=== PATIENT | male | born 1990 | race Caucasian/White ===

== ENCOUNTER 2018-12-06 17:41 | Emergency (ER) | payer SELFPAY ==
--- NOTE | 2018-12-06 17:44 | DI.RAD.S_ITS ---
PROCEDURE: XR LUMBAR SPINE 2-3V INDICATIONS: Spinal tenderness with fall from 20ft. TECHNIQUE: 3 views of the lumbar spine were acquired. COMPARISON: [facility], CR, XR SACRUM COCCYX MIN 2V, 12/06/2018, 17:51. FINDINGS: Bones: 5 [id number] vertebrae are present. There is minimal anterolisthesis at L1-L2, L2-L3, and L3-L4. The disc spaces appear preserved. There is minimal facet arthropathy in the lower lumbar spine. No vertebral body compression fractures or other displaced fracture identified. No suspicious bony lesions. Soft tissues: Overlying bowel gas pattern is normal. No suspicious soft tissue calcifications. IMPRESSION: 1. No evidence of compression fracture or other displaced fractures. If clinical concern persists, further evaluation may be obtained CT. 2. Minimal multilevel retrolisthesis. Dictated by: Omi Hathaway M.D. on 12/06/2018 at 18:09 Approved by: Omi Hathaway M.D. on 12/06/2018 at 18:10
--- NOTE | 2018-12-06 17:44 | DI.RAD.S_ITS ---
PROCEDURE: XR SACRUM COCCYX MIN 2V INDICATIONS: Bony tenderenss after 20ft fall landing on sacrum TECHNIQUE: 3 views of the sacrum and coccyx acquired. COMPARISON: [facility], CR, XR LUMBAR SPINE 2-3V, 12/06/2018, 17:51. FINDINGS: Bones: No displaced fractures or dislocations. No suspicious bony lesions. Soft tissues: Visualized bowel gas pattern is normal. No suspicious soft tissue densities. IMPRESSION: 1. No displaced fracture identified. If clinical concern persists, further evaluation may be obtained with CT. Dictated by: Omi Hathaway M.D. on 12/06/2018 at 18:08 Approved by: Omi Hathaway M.D. on 12/06/2018 at 18:09
[2018-12-06 17:47] VITALS: BP 128/81; PULSE 79; RESP 18; TEMP 37.1; O2SAT 99; BMI 28.3
--- NOTE | 2018-12-06 18:25 | ED_ITS ---
HPI - Back Pain/Injury <RAMIREZ Day - Last Filed: 12/06/18 21:27> General Chief Complaint: Trauma Stated Complaint: FELL FROM LADDER Time Seen by Provider: 12/06/18 17:42 Source: patient Mode of arrival: ambulatory Limitations: no limitations History of Present Illness HPI Narrative: 28-year-old healthy male presents emergency department after falling off a ladder about 20 ft about 4 days ago and landing on his coccyx. States that he has a constant 6/10 aching pain in his buttocks that is worse with movement better with rest. Patient denies hitting head head or other injuries. Patient denies any numbness, tingling, loss of bowel or bladder control, shortness of breath, chest pain, deformities, leg pain or weakness, fevers or chills. MD Complaint: back pain Onset (ago): hour(s) Related Data Previous Rx's Medication Instructions Recorded diazepam [Valium] 5 mg PO BID PRN #10 tab 12/06/18 Allergies Allergy/AdvReac Type Severity Reaction Status Date / Time No Known Drug Allergies Allergy Verified 12/06/18 17:47 Review of Systems <RAMIREZ Day - Last Filed: 12/06/18 21:27> Review of Systems REVIEW OF SYSTEMS: GENERAL: Denies fever or chills. HENT: No head trauma, hearing loss or sore throat. EYES: No loss of vision, double vision, eye pain, or irritation. CARDIOVASCULAR: No chest pain or syncope. RESPIRATORY: No shortness of breath or cough. GASTROINTESTINAL: No nausea, vomiting, diarrhea, or constipation. GENITOURINARY: No flank pain or dysuria. MUSCULOSKELETAL: Complains of coccyx pain, see HPI. INTEGUMENTARY: No rash, lesions, or pruritus. NEURO: No numbness, tingling, memory loss, or confusion. PSYCH: No behavior or mood changes. PFSH <RAMIREZ Day - Last Filed: 12/06/18 21:27> Medical History No significant medical problems (Acute) Social History Smoking Status: Current every day smoker Social History Smoking Status: Current every day smoker Exam <RAMIREZ Day - Last Filed: 12/06/18 21:27> Initial Vital Signs Initial Vital Signs: Vital Signs Temperature 98.8 F 12/06/18 17:47 Pulse Rate 79 12/06/18 17:47 Respiratory Rate 18 12/06/18 17:47 Blood Pressure 128/81 12/06/18 17:47 Pulse Oximetry 99 12/06/18 17:47 PHYSICAL EXAMINATION: GENERAL: Well groomed, alert, and cooperative Answers questions promptly and appropriately. Vital signs noted. HENT: Normocephalic, atraumatic. EYES: PERRLA, conjunctiva pink, sclera white, no periorbital swelling. NECK: Full range of motion. No tenderness to palpation. CHEST: Normal to inspection and without deformities. CARDIOVASCULAR: S1 and S2 sounds normal. Regular rate and rhythm, no murmurs, clicks, or bruits. No pedal edema. RESPIRATORY: Normal respiratory rate, trachea midline, airway patent. No stridor, nasal flaring or accessory muscle use. Lungs are clear in all buchanan without wheeze, rhonchi, or crackles. GASTROINTESTINAL: Bowel sounds normoactive. Abdomen is soft and non-tender. No organomegaly. MUSCULOSKELETAL: Normal gait and coordination. Equal tone and mass bilaterally. Coccyx tenderness with palpation, lower lumbar tenderness with palpation. Tenderness around prior spinal muscles. No bruising noted. EXTREMITIES: CMS intact. Full range of motion and 5/5 strength to upper and lower extremities SKIN: Warm, dry, soft, appropriate color for ethnicity. No lesions, rashes, or wounds. NEURO: Alert and Oriented X 3. Good coordination. No ataxia, or sensory deficits to light touch on any extremities, or cognitive issues. Claim Benefit Specialist strength is slightly decreased on the right hand due to history of thumb injury, upper limb strength remains equal bilaterally at 5/5. PSYCH: Appropriate affect and mood. <Miguel Angel Montilla DO - Last Filed: 12/12/18 00:46> Initial Vital Signs Initial Vital Signs: Vital Signs Temperature 98.8 F 12/06/18 17:47 Pulse Rate 79 12/06/18 17:47 Respiratory Rate 18 12/06/18 17:47 Blood Pressure 128/81 12/06/18 17:47 Pulse Oximetry 99 12/06/18 17:47 Scores <RAMIREZ Day - Last Filed: 12/06/18 21:27> Nexus Score for C-Spine Focal Neurologic deficit present: No Midline spinal tenderness present: No Altered level of conciousness present: No Intoxication present: No Distracting Injury Present: No Nexus Criteria for C-spine: 0 Course <RAMIREZ Day - Last Filed: 12/06/18 21:27> Course Narrative: Spoke with patient about negative x-rays, advised patient that obtain a CT would tell us more as he is experiencing significant pain. However patient decided that he would like to leave as this is the only day that he gets to see his daughter, and declined further imaging. Strict return precautions were given patient understood that the fracture may be missed if CT was not obtained. Orders Ordered: ED Orders 12/06/18 17:44 XR lumbar spine 2-3V Stat XR sacrum coccyx min 2V Stat Consultations Consultation #1: Patient staffed with Dr. Montilla. Vital Signs - 8 hr 12/06/18 17:47 Temperature 98.8 F Pulse Rate 79 Respiratory Rate 18 Blood Pressure 128/81 Pulse Oximetry 99 <Miguel Angel Montilla DO - Last Filed: 12/12/18 00:46> Orders Ordered: ED Orders 12/06/18 17:44 XR lumbar spine 2-3V Stat XR sacrum coccyx min 2V Stat Vital Signs - 8 hr 12/06/18 17:47 Temperature 98.8 F Pulse Rate 79 Respiratory Rate 18 Blood Pressure 128/81 Pulse Oximetry 99 MDM - Back Pain/Injury <RAMIREZ Day - Last Filed: 12/06/18 21:27> Medical Records Attestation: I reviewed the patient's medical records. Lab Data Attestation: I reviewed the patient's lab results. Imaging Data Lumbar XR: Radiologist's impression: [address] [address] XRay Report Signed Patient: Aram Leyva [facility]#: [id number] : 1990Acct:[id number] Age/Sex: 28 / MDate of Service: 12/06/18 Loc: ED Accession Number: [id number] Procedure: XR lumbar spine 2-3V Ordering Provider: Liliana Holt PROCEDURE: XR LUMBAR SPINE 2-3V INDICATIONS: Spinal tenderness with fall from 20ft. TECHNIQUE: 3 views of the lumbar spine were acquired. COMPARISON: [facility], CR, XR SACRUM COCCYX MIN 2V, 12/06/2018, 17:51. FINDINGS: Bones: 5 [id number] vertebrae are present. There is minimal anterolisthesis at L1-L2, L2-L3, and L3-L4. The disc spaces appear preserved. There is minimal facet arthropathy in the lower lumbar spine. No vertebral body compression fractures or other displaced fracture identified. No suspicious bony lesions. Soft tissues: Overlying bowel gas pattern is normal. No suspicious soft tissue calcifications. IMPRESSION: 1. No evidence of compression fracture or other displaced fractures. If clinical concern persists, further evaluation may be obtained CT. 2. Minimal multilevel retrolisthesis. Dictated by: Omi Hathaway M.D. on 12/06/2018 at 18:09 Approved by: Omi Hathaway M.D. on 12/06/2018 at 18:10 Sacral/cocc XR: Radiologist's impression: [place] [address] XRay Report Signed Patient: Aram Leyva [facility]#: [id number] : 1990Acct:[id number] Age/Sex: 28 / MDate of Service: 12/06/18 Loc: ED Accession Number: [id number] Procedure: XR sacrum coccyx min 2V Ordering Provider: Liliana Holt PROCEDURE: XR SACRUM COCCYX MIN 2V INDICATIONS: Bony tenderenss after 20ft fall landing on sacrum TECHNIQUE: 3 views of the sacrum and coccyx acquired. COMPARISON: [facility], CR, XR LUMBAR SPINE 2-3V, 12/06/2018, 17:51. FINDINGS: Bones: No displaced fractures or dislocations. No suspicious bony lesions. Soft tissues: Visualized bowel gas pattern is normal. No suspicious soft tissue densities. IMPRESSION: 1. No displaced fracture identified. If clinical concern persists, further evaluation may be obtained with CT. Dictated by: Omi Hathaway M.D. on 12/06/2018 at 18:08 Approved by: Omi Hathaway M.D. on 12/06/2018 at 18:09 [facility] Narrative Medical decision making narrative: Low suspicion for fracture due to negative lumbar and sacral coccyx x-ray, however due to mechanism of fall recommended CT to further reduce suspicion as patient remains in pain 4 days after fall. However patient declined further testing. Low suspicion for abdominal injury is nontender, and denies any dysuria, change in bowel patterns, or vomiting since the fall 4 days ago. Low suspicion for head injuries patient reports not having had the patient is alert and oriented. Low suspicion for thoracic or cervical spine injury as there is no pain on palpation. Strict return precautions given and follow-up instructions discussed. Discharge Plan Departure Patient Disposition: Home Clinical Impression: Lumbar back pain Lumbar strain Qualifiers: Encounter type: initial encounter Qualified Code(s): S39.012A - Strain of muscle, fascia and tendon of lower back, initial encounter Discharge Date/Time: 12/06/18 18:42 Interventions: ED Discharge Assessment Last Done: 12/06/18 18:42 Instructions: DI for Low Back Pain Activity Restrictions/Additional Instructions: Thank you for entrusting me with your care today. As discussed, you're x-rays are negative for fracture. We discussed getting a CT as her fall was from a significant height, however you declined this at this time. If your symptoms continue and/or worsen please follow up with her primary care provider or return to the emergency department. I prescribed you Valium to help with tense muscles and pain., do not drive with this medication as it can make her drowsy. Return to the emergency department if you experience syncope, chest pain, shortness of breath, significant increase of pain, numbness or tingling in her limbs, loss of bowel or bladder control. Prescriptions: New diazepam [Valium] 5 mg tablet 5 mg PO BID PRN (Reason: Back pain and stiffness) Qty: 10 RF: 0 <Miguel Angel Montilla DO - Last Filed: 12/12/18 00:46> Cosgutierrez ED Attending Rick Attestation: I was immediately available in the department for consultation. Documentation has been reviewed. I agree with assessment and plan.
--- NOTE | 2018-12-06 18:39 | PC.NURSE ---
Patient fell off ladder 20ft on tuesday reports landing on his but. Reports pain with sitting, denies bowel or bladder loss. Denies numbness or tingling in lower extremities. Equal strength noted in legs. Ambulatory around department.
== END 2018-12-06 18:42 | disposition home or self-care (01) ==
PROVIDERS: Emergency Provider Nurse Practitioner
DX: S39.012A Strain of muscle, fascia and tendon of lower back, initial encounter (principal); W11.XXXA Fall on and from ladder, initial encounter
CPT/HCPCS: 72100; 72220; 99282; 99283

== ENCOUNTER 2019-01-28 15:15 | Emergency (ER) | payer SELFPAY ==
[2019-01-28 15:20] VITALS: BP 126/70; PULSE 69; RESP 15; TEMP 37.1; O2SAT 97; BMI 30.1
--- NOTE | 2019-01-28 15:26 | DI.RAD.S_ITS ---
PROCEDURE: XR FINGER LT MIN 2V INDICATIONS: laceration on L 4th finger TECHNIQUE: AP hand, 2 views of the ring (fourth) finger(s) acquired. COMPARISON: None. FINDINGS: Bones: No fractures or dislocations. No suspicious bony lesions. Soft tissues: No suspicious soft tissue calcifications. No unexpected radiopaque foreign bodies are evident. IMPRESSION: 1. No acute fractures. 2. No radiopaque foreign bodies. Dictated by: Adelso Pugh M.D. on 01/28/2019 at 14:41 Approved by: Adelso Pugh M.D. on 01/28/2019 at 14:42
[2019-01-28] MEDS: TET,DIPH,PERTUSS(ACELL),VAC/PF 0.5 ML SYRINGE IM (15:44)
--- NOTE | 2019-01-28 16:07 | ED.WOUNDLAC ---
HPI - Wound/Laceration <RAMIREZ Donovan - Last Filed: 01/28/19 21:44> General Chief Complaint: Wound/Laceration Stated Complaint: left hand palm injury/4th digit today Time Seen by Provider: 01/28/19 15:19 Source: patient and family Mode of arrival: ambulatory Limitations: no limitations History of Present Illness HPI narrative: This is a 28-year-old male, smoker, who present with his fiancee with chief complain of left 4th finger small avulsion in mid phalange, small laceration to distal phalange, small laceration to palm from a broken ceramic bowl when he was washing dishes. He states had washed his hand will well remove all the glass particles. He reports his last tetanus was between 3-8 years ago. He is right dominant hand. He reports he is able to move his fingers with intact sensation. Related Data Previous Rx's Medication Instructions Recorded diazepam [Valium] 5 mg PO BID PRN #10 tab 12/06/18 Allergies Allergy/AdvReac Type Severity Reaction Status Date / Time No Known Drug Allergies Allergy Verified 12/06/18 17:47 Review of Systems <RAMIREZ Donovan - Last Filed: 01/28/19 21:44> Review of Systems General: Denies fever, chills, fatigue, malaise, sweats. HEENT: Denies sinus pain, ear pain, sore throat, difficulty swallowing, dizziness. Respiratory: Denies dyspnea, cough, wheezing, hemoptysis, sputum. Cardiovascular: Denies chest pain, palpitations, orthopnea, edema. Gastrointestinal: Denies nausea, vomiting, abdominal pain, diarrhea, constipation, melena. : Denies dysuria, frequency, incontinence, hematuria, urinary retention. Musculoskeletal: Denies weakness, joint pain or bony pain. Skin: See HPI Neurologic: Denies weakness, headache, numbness, change in speech, confusion, seizures, incoordination. Psychiatric: No concerning psychosocial issues. 12-point review of systems is negative except for those stated above. PFSH <RAMIREZ Donovan - Last Filed: 01/28/19 21:44> Medical History No significant medical problems (Acute) Social History Smoking Status: Current every day smoker Social History Smoking Status: Current every day smoker Exam <RAMIREZ Donovan - Last Filed: 01/28/19 21:44> Narrative Exam Narrative: General appearance: well developed, well nourished, in no acute distress. Head: normocephalic, atraumatic, no scalp lesions, non-tender. Eye: pupil equal, round. EOMI. Nose: nares patent. Oral: mucosa moist. Neck/Thyroid: neck supple, full range of motion, no visible masses. Skin: 0.5cm linear laceration on L palm. Flap like small avulsion, <0.5cm, on L 4th middle finger. 0.5cm laceration on distal 4th L finger. No active bleeding and lacerations is superficial. Laceration and avulsion have mostly approximated at this time. No FB seen or felt during exploration. no suspicious rashes, lesions over other visible areas. Warm and dry. Heart: no clubbing, no cyanosis, no edema. Lungs: Breathing even and unlabored. No stridor. No accessory muscles used. Chest: normal shape and expansion. Abdomen: non-obese, non-distended. Neurologic: alert and oriented. 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 Psych: good eye contact, normal affect. Initial Vital Signs Initial Vital Signs: Vital Signs Temperature 98.7 F 01/28/19 15:20 Pulse Rate 69 01/28/19 15:20 Respiratory Rate 15 01/28/19 15:20 Blood Pressure 126/70 01/28/19 15:20 Pulse Oximetry 97 01/28/19 15:20 Extrem Left upper extremity: full ROM, normal capillary refill and hand Details: neuromotor exam normal, neurosensory exam normal, tenderness, normal ROM of fingers, no swelling, abrasion and laceration <Miguel Angel Montilla DO - Last Filed: 01/30/19 04:41> Initial Vital Signs Initial Vital Signs: Vital Signs Temperature 98.7 F 01/28/19 15:20 Pulse Rate 69 01/28/19 15:20 Respiratory Rate 15 01/28/19 15:20 Blood Pressure 126/70 01/28/19 15:20 Pulse Oximetry 97 01/28/19 15:20 Procedures <SALLY DonovanP - Last Filed: 01/28/19 21:44> Laceration Repair L 4th finger : Site: hand (4th finger middle and proximal) Side (If applicable): left Size (cm): 1 Description: flap Skin layer closed with: dermabond L palm: Site: hand (palm) Side (If applicable): left Size (cm): 0.5 Description: linear Skin layer closed with: dermabond Course <SALLY DonovanP - Last Filed: 01/28/19 21:44> Orders Ordered: Discontinued Medications Diphtheria/Tetanus/Acell Pertussis (Adacel) 0.5 ml IM .ONCE ONE Stop: 01/28/19 15:27 Last Admin: 01/28/19 15:44 Dose: 0.5 ml Lidocaine/Sodium Bicarbonate (Buffered Lidocaine 10 Ml Syr) 10 ml INJ NOW ONE Stop: 01/28/19 15:27 Vital Signs - 8 hr 01/28/19 15:20 Temperature 98.7 F Pulse Rate 69 Respiratory Rate 15 Blood Pressure 126/70 Pulse Oximetry 97 <Miguel Angel Montilla DO - Last Filed: 01/30/19 04:41> Orders Ordered: Discontinued Medications Diphtheria/Tetanus/Acell Pertussis (Adacel) 0.5 ml IM .ONCE ONE Stop: 01/28/19 15:27 Last Admin: 01/28/19 15:44 Dose: 0.5 ml Lidocaine/Sodium Bicarbonate (Buffered Lidocaine 10 Ml Syr) 10 ml INJ NOW ONE Stop: 01/28/19 15:27 Vital Signs - 8 hr 01/28/19 15:20 Temperature 98.7 F Pulse Rate 69 Respiratory Rate 15 Blood Pressure 126/70 Pulse Oximetry 97 MDM - Wound/Laceration <Tarun JacquesSALLY GarciaP - Last Filed: 01/28/19 21:44> Differential Diagnosis Differential diagnosis: Likely laceration and other (avulsion, foreign body in L finger/palm) Medical Records Attestation: I reviewed the patient's medical records. Imaging Data XR-L finger: Radiologist's impression: [address] [address] XRay Report Signed Patient: Aram Laura [facility]#: [id number] : 1990Acct:[id number] Age/Sex: 28 / MDate of Service: 01/28/19 Loc: ED Accession Number: [id number] Procedure: XR finger LT min 2V Ordering Provider: Tarun Malhotra PROCEDURE: XR FINGER LT MIN 2V INDICATIONS: laceration on L 4th finger TECHNIQUE: AP hand, 2 views of the ring (fourth) finger(s) acquired. COMPARISON: None. FINDINGS: Bones: No fractures or dislocations. No suspicious bony lesions. Soft tissues: No suspicious soft tissue calcifications. No unexpected radiopaque foreign bodies are evident. IMPRESSION: 1. No acute fractures. 2. No radiopaque foreign bodies. Dictated by: Adelso Pugh M.D. on 01/28/2019 at 14:41 Approved by: Adelso Pugh M.D. on 01/28/2019 at 14:42 MDM Narrative Medical decision making narrative: This is a 28-year-old male presents with small a avulsion to left 4th middle finger, laceration to distal left 4th finger, another laceration to left palm from a shattered ceramic bowl while he was washing dishes. He cleaned his wound well before arriving to ED to remove all the glass particles. Patient's neuro vascular exam was intact and range of motion was intact. X-ray on left finger was obtained without any acute findings such as fractures or radiopaque pack foreign bodies. The patient soak his finger into he Hibiclens and water. Tdap was updated today as patient's request. His 3 small wounds was repaired with pond and patient tolerated well. The wound was dressed by nursing staff. We discussed about post Dermabond care was discussed with patient and return precautions such as infection. The patient does not have PCP this time and [facility] Resource contact phone number has been provided. No further questions at this and the patient and fiancee agree with treatment plan. Discharge Plan Departure Patient Disposition: Home Clinical Impression: Laceration Discharge Date/Time: 01/28/19 17:02 Interventions: ED Discharge Assessment Last Done: 01/28/19 17:01 Instructions: DI for Laceration Repair With Dermabond Activity Restrictions/Additional Instructions: Please do not get your wound soaked in the water until suture removal. Keep your dressing intact for next 24 hrs. After then, you could remove your dressing, wash with soap and water. Pat dry with clean papertowel and dress it. Please avoid using oil based ointment, cream, lotion and etc since this may make dermabond lose and removed prematurely. Dermabond will come off in 5-7 days on its own. Do not peel this off or pick on it. You can change dressing as needed and daily. Please monitor for signs and symptoms for infection such as increasing redness, swelling, warmth, pain, fever, purulent discharge. If this occurs, please return to ED or follow up with your primary care physician since your wound may be gotten infected. Please follow up with your primary care provider in 2-3 days for recheck wound. This can be done by your primary provider, walk-in clinic or here in ED. Please keep your wound clean, dry and intact all times and try to avoid excessive flexing or putting pressure on affected hand. Prescriptions: No Action diazepam [Valium] 5 mg tablet 5 mg PO BID PRN (Reason: Back pain and stiffness) Qty: 10 RF: 0 Referrals: [facility] [Outside] <Miguel Angel Montilla DO - Last Filed: 01/30/19 04:41> R[facility] ED Attending Rick Attestation: I was immediately available in the department for consultation. Documentation has been reviewed. I agree with assessment and plan.
== END 2019-01-28 17:02 | disposition home or self-care (01) ==
PROVIDERS: Emergency Provider Nurse Practitioner Family
DX: S61.412A Laceration without foreign body of left hand, initial encounter (principal); S61.215A Laceration without foreign body of left ring finger without damage to nail, initial encounter; W26.8XXA Contact with other sharp object(s), not elsewhere classified, initial encounter; Z23 Encounter for immunization
CPT/HCPCS: 73140; 90472; 99283; 90715

== ENCOUNTER 2020-01-31 20:37 | Emergency (ER) | payer OTHER, SELFPAY ==
--- NOTE | 2020-01-31 20:38 | ED_ITS ---
HPI - URI/Sore Throat General Chief Complaint: Upper Respiratory Symptoms Stated Complaint: throat swelling Time Seen by Provider: 01/31/20 20:38 Source: patient Mode of arrival: Ambulatory Limitations: no limitations History of Present Illness HPI Narrative: 29M without medical history presents with the chief complaint of sore throat over the day. It hurts to swallow. He's had subjective fever and some trouble breathing but no definite cough. He's had no nausea, vomiting, or diarrhea. He denies exposure to obviously ill persons. He's had no rash. No chest pain and is otherwise well and free of complaint. Related Data Previous Rx's Medication Instructions Recorded diazepam [Valium] 5 mg PO BID PRN #10 tab 12/06/18 Allergies Allergy/AdvReac Type Severity Reaction Status Date / Time No Known Drug Allergies Allergy Verified 12/06/18 17:47 Review of Systems Constitutional Constitutional: Denies chills, Denies fatigue, Denies fever(s), Denies frequent falls, Denies lethargy and Denies weakness Eyes Eyes: Denies change in vision, Denies eye discharge, Denies irritation and Denies loss of vision ENT Ears, Nose, Mouth, and Throat: Denies change in voice, Denies dizziness, Denies neck pain, Reports sore throat and Denies throat swelling Cardiovascular Cardiovascular: Denies chest pain, Denies irregular heart rhythm, Denies lightheadedness, Denies palpitations, Denies dyspnea, Denies dyspnea on exertion and Denies orthopnea Respiratory Respiratory: Reports cough, Denies dyspnea, Denies dyspnea on exertion and Denies wheezing Gastrointestinal Gastrointestinal: Denies abdominal pain, Denies change in bowel habits, Denies diarrhea, Denies nausea and Denies vomiting Musculoskeletal Musculoskeletal: Denies neck pain and Denies numbness Integumentary/Breasts Skin/Breast: Denies pruritus, Denies erythema, Denies rash and Denies wounds Neurologic Neurologic: Denies behavioral changes, Denies confusion, Denies dizziness, Denies frequent falls, Denies loss of vision, Denies numbness and Denies weakness Psychiatric Psychiatric: Denies anxiety, Denies behavioral changes, Denies confusion, Denies depression, Denies homicidal ideation and Denies suicidal ideation Endocrine Endocrine: Denies fatigue, Denies flushing and Denies palpitations Hematologic/Lymphatic Hematologic/Lymphatic: Denies easy bruising Allergic/Immunologic Allergic/Immunologic: Denies urticaria, Denies throat swelling and Denies wheezing Patient History Medical History No significant medical problems (Acute) Social History Smoking Status: Current every day smoker Smoking Status: Current every day smoker Substance Use Type: does not use Exam Narrative Exam Narrative: GENERAL: [29] year old patient appears stated age. Well- nourished, well-developed patient, in mild distress. HEAD: Atraumatic. Normocephalic. EYES: Pupils equal round and reactive. Extraocular motions intact. No scleral icterus. No injection or drainage. ENT: Nose without bleeding, purulent drainage. Throat without erythema, tonsillar hypertrophy or exudate. Perhaps a small amount of posterior pharyngeal tripped Airway patent. NECK: Trachea midline. Non tender CARDIOVASCULAR: Regular rate and rhythm without murmurs, gallops, or rubs. RESPIRATORY: Clear to auscultation. Breath sounds equal bilaterally. No wheezes, rales, or rhonchi. GASTROINTESTINAL: Abdomen soft, non-tender, nondistended. EXTREMITIES: No edema or joint tenderness. BACK: Nontender without deformity or crepitance. No flank tenderness. NEURO: AOx3. SKIN: No rash or erythema of visible areas Initial Vital Signs Initial Vital Signs: Vital Signs Temperature 100.5 F H 01/31/20 20:45 Pulse Rate 89 01/31/20 20:45 Respiratory Rate 15 01/31/20 20:45 Blood Pressure 131/65 01/31/20 20:45 Pulse Oximetry 99 01/31/20 20:45 Course Orders Ordered: ED Orders 01/31/20 20:50 Throat Culture Stat 01/31/20 21:18 XR chest 1V Stat Discontinued Medications Dexamethasone (Decadron) 10 mg PO NOW ONE Stop: 01/31/20 20:44 Last Admin: 01/31/20 20:49 Dose: 10 mg Documented by: CHRISTOPHE Ketorolac Tromethamine (Toradol) 60 mg IM NOW ONE Stop: 01/31/20 20:42 Last Admin: 01/31/20 20:49 Dose: 60 mg Documented by: CHRISTOPHE Vital Signs Vital signs: Vital Signs - 8 hr 01/31/20 20:45 01/31/20 22:19 Temperature 100.5 F H 99.5 F Pulse Rate 89 84 Respiratory Rate 15 16 Blood Pressure 131/65 128/66 Pulse Oximetry 99 98 MDM - URI/Sore Throat Lab Data Labs: Point of Care Testing Rapid Strep A Negative Discharge Plan Departure Patient Disposition: Home Clinical Impression: Upper respiratory virus Discharge Date/Time: 01/31/20 22:32 Instructions: Coronavirus Disease 2019 Activity Restrictions/Additional Instructions: *You have been diagnosed with [ viral upper respiratory infection, which based on your symptoms, labs and imaging is suspicious for coronavirus] *What to do: * per recommendations from the CDC and the [facility] Department of Health * stay home except to get medical care. Restrict activities outside your home, except for getting medical care. Do not go to work, school, or public areas. Avoid using public transportation, ride sharing, or taxis. * separate yourself from other people in your home. * call ahead before visiting your doctor * Wear a facemask * Cover your coughs and sneezes * Clean your hands often * Avoid sharing household items * Clean all high-touch services every day * Monitor your symptoms and seek prompt medical attention if your illness is worsening, particularly with difficulty in breathing. Discussed continuing home isolation * for individuals with symptoms who are confirmed or suspected cases of COVID-19 and are directed to care for themselves at home, discontinue home isolation under the following conditions: 1. At least 72 hours have passed since recovery, defined as resolution of fever without the use of fever reducing medications, and improvement in respiratory symptoms (cough, shortness of breath) AND, 2. At least 7 days have passed since symptoms 1st appeared Individuals with laboratory confirmed COVID-19 who have not had any symptoms may discontinue home isolation when at least 7 days have passed since the date of their 1st COVID-19 diagnostic test and have had no subsequent illness Prescriptions: No Action diazepam [Valium] 5 mg tablet 5 mg PO BID PRN (Reason: Back pain and stiffness) Qty: 10 RF: 0 Referrals: [facility] [Outside]
[2020-01-31 20:45] VITALS: BP 131/65; PULSE 89; RESP 15; TEMP 38.1; O2SAT 99; BMI 32.8
[2020-01-31] MEDS: KETOROLAC 60 MG/2 ML VIAL IM (20:49)
[2020-01-31] MEDS: DEXAMETHASONE 10 MG/ML VIAL PO (20:49)
--- NOTE | 2020-01-31 21:18 | DI.RAD.S_ITS ---
PROCEDURE: XR CHEST 1V INDICATIONS: cough, fever, SOB TECHNIQUE: One view of the chest was acquired. COMPARISON: [facility], [place], CHEST/ABD/PEL WITH CONTRAST, 12/14/2015, 22:18. FINDINGS: Surgical changes and devices: None. Lungs and pleura: Lungs are clear. No pleural effusions or pneumothorax. Mediastinum: Mediastinal contours appear normal. Heart size is normal. Bones and chest wall: No suspicious bony lesions. Overlying soft tissues appear unremarkable. IMPRESSION: No acute pulmonary process. Dictated by: Abby Swenson M.D. on 01/31/2020 at 22:06 Approved by: Abby Swenson M.D. on 01/31/2020 at 22:06
[2020-01-31 22:19] VITALS: BP 128/66; PULSE 84; RESP 16; TEMP 37.5; O2SAT 98
[2020-02-05 05:39] LABS: COVID19 Sendout Not Detected (Not Detected)
== END 2020-01-31 22:32 | disposition home or self-care (01) ==
PROVIDERS: Emergency Provider Emergency Medicine
DX: Z03.818 Encounter for observation for suspected exposure to other biological agents ruled out (principal); R50.9 Fever, unspecified; J02.9 Acute pharyngitis, unspecified
CPT/HCPCS: 71045; 87070; 87635; 87880; 96372; 99283; 99284; J1100; J1885